=== PATIENT | female | born 1980 | race African-American/Black ===

== ENCOUNTER 2016-11-04 20:21 | Emergency (ER) | payer OTHER ==
[~2016-11-04] VITALS: Ht 172.7 cm; Wt 77.5 kg
[~2016-11-04 20:21] MED LIST: BACTRIM,SEPT1 TABLET PO; HYDROXYZINE PAM50 MG PO; KEFLEX500 MG PO; MACROBID100 MG PO; NAPROSYN500 MG PO; NAPROXEN500 MG PO
[2016-11-04 21:19] LABS: ADD MIUA? YES; BILIRUBIN MODERATE; BLOOD NEGATIVE; COLOR YELLOW ((YELLOW)); GLUCOSE (STRIP) NEGATIVE; KETONES 5; LEUKOCYTES NEGATIVE; NITRITE NEGATIVE; PROTEIN (STRIP) NEGATIVE; SPECIFIC GRAVITY 1.034 (1.000-1.030)
[2016-11-04 21:31] LABS: BACTERIA NONE SEEN /HPF; EPITHELIAL CELLS 1+ /HPF; MUCUS 1+ /LPF; RED BLOOD CELLS 0-5 /HPF (0-5); UCUL ADDED? NO; WHITE BLOOD CELLS 0-5 /HPF (0-5)
[2016-11-04 21:53] LABS: ICTOTEST NEGATIVE
[2016-11-04 22:09] LABS: HEMATOCRIT 42.6 % (36.0-46.0); MCH 28.5 PG (29.0-34.0); MCHC 32.9 G/DL (30.0-36.0); MCV 86.6 FL (83-99); MEAN PLAT.VOLUME 8.7 uM^3 (9.5-12.4); PLATELET COUNT 240 K/uL (156-360); RBC DIS.WIDTH-CV 12.7 % (11.8-14.6); RBC DIS.WIDTH-SD 40.3 % (39-53); RED BLOOD COUNT 4.92 M/uL (3.80-5.20); WHITE BLOOD COUNT 7.4 K/uL (4.1-10.2)
[2016-11-04 22:25] LABS: CHLORIDE 105 mEq/L (99-109); POTASSIUM 3.8 mEq/L (3.7-5.4); SODIUM 137 mEq/L (136-147)
[2016-11-04 22:28] LABS: GLUCOSE 99 mg/dL (70-99)
[2016-11-04 22:29] LABS: ANION GAP 9 MEQ/L (2-14)
[2016-11-04 22:30] LABS: TOTAL BILIRUBIN 0.2 mg/dL (0.0-1.0)
[2016-11-04 22:31] LABS: ALKALINE PHOSPHATASE 49 IU/L (3-129); GFR ESTIMATE (CALCULATED) > 59 mL/min/
[2016-11-04 22:32] LABS: UREA NITROGEN (BUN) 14 mg/dL (9-23)
[2016-11-04 22:33] LABS: DIRECT BILIRUBIN 0.1 mg/dL (0.0-0.3)
[2016-11-04 22:35] LABS: LIPASE 74 U/L (1.0-51.0)
[2016-11-05] MEDS ORDERED: CIPRO500 MG PO (00:42)
[2016-11-05 00:47] VITALS: BP 126/89
== END 2016-11-05 00:51 | disposition home or self-care (01) ==
LOC: EME 20:21
PROVIDERS: Emergency Medicine
DX: R10.30 Lower abdominal pain, unspecified (principal); F17.200 Nicotine dependence, unspecified, uncomplicated
CPT/HCPCS: 74176; 80048; 80076; 81003; 83690; 85027; 87086; 99281; 99284